=== PATIENT | male | born 1990 | race Caucasian/White ===

== ENCOUNTER 2017-09-01 17:33 | Emergency (ER) | payer OTHER ==
[2017-09-01 17:57] VITALS: BP 129/81; PULSE 80; RESP 16; TEMP 98.8; O2SAT 97
--- NOTE | 2017-09-01 18:26 | EDPHY ---
General Time Seen by Provider: 09/01/17 18:06 Narrative: CHIEF COMPLAINT: foreign body finger HISTORY OF PRESENT ILLNESS: Patient complains of splinter foreign body to right index finger. This occurred on August 24 while swinging a sledge hammer. He went to outside facility that day with partial removal of the splinter performed. He is that he was told with rest would "work it's way out." He is provided a prescription of Keflex. He has been taking this as prescribed. He says that he felt well for due to in the noticed piece of the splinter in place. He is not bothering him. It is mildly painful. No redness. No warmth. No fever. No difficulty bending or straightening the finger. No systemic illness. He is here asking for the rest of the splinter to be removed. No other associated complaints or modifying factors. Right-hand dominant. TIME OF INJURY: August 24 TETANUS STATUS: Up to date MEDICAL/SURGICAL/SOCIAL HISTORY: Uncomplicated medical history. Lives and works here locally. REVIEW OF SYSTEMS: Ten systems reviewed and are negative unless otherwise noted in the HPI EXAMINATION General Appearance: Alert, no distress Head: normocephalic, atraumatic Cardiovascular: Symmetric radial pulses 2+. Brisk cap refill in the right index finger. Neurological: A&O, 2 point sensation intact. Excellent and symmetric interossei strength. Skin: Warm and dry, no rash. Superficial eschar over the right index finger area of insertion of the splinter. There is no cellulitis. No crepitus. No warmth. No tenosynovitis. Extremities: Minimally tender right index finger over the dorsum of the middle phalanx. There is a palpable firmness in this area consistent with his history. There is full flexion extension at the PIP and PIP of the right index finger. DIFFERENTIAL DIAGNOSES: Including but not limited to superficial foreign body, foreign body, edema, tenosynovitis MDM: 6:25 p.m. Retained foreign body on the posterior aspect of the right index finger middle phalanx. This is palpable and visual by unofficial bedside ultrasound. He has no evidence of tenosynovitis. Full flexion extension without any redness, warmth, erythema or evidence of septic joint. I have administered a digital block. 7:25 p.m. Partial movable of foreign body of the right index finger. I was able to remove approximately half a cm or last of suspected wooden foreign body. I explored the remainder of the area with blunt dissection and cannot visualize or palpate any further foreign body. This was all done without complication and tolerated well. He was CMS intact pre and postprocedure with good flexion extension at both the PIP and the IP. I have sutured the wound closed with 4 sutures. I will refer him to hand surgeon for definitive care. This is a recommended mandatory follow-up. He has strict ED precautions. He is Keflex prophylaxis. Light duty for the next 3-5 days and then advance slowly. Suture removal here in 7-10 days. He is comfortable this plan and discharged home stable condition. PROCEDURE: Foreign Body Removal 4 simple ruptured sutures. Consent: Verbal Location: Right index finger, dorsal, middle phalanx Complexity: Complex Layer involvement: Single Anesthesia: Digital block Irrigation: Extensive Procedure description: Following good anesthesia and time-out, using sterile technique I extended the existing wound into a 1 cm incision over the palpable suspected foreign body. I used blunt dissection in the surrounding 0.5 cm. I was able to remove one small piece of wooden foreign body. I was unable to palpate or appreciate any other remaining foreign body. The area was copiously irrigated. I then closed the wound with Tolerated well without complication. Suture/Staple material: 4-0 Ethilon, 4 simple ruptured sutures Wound care: Routine as discussed Suture/Staple removal: 7-10 Days PROCEDURE: Digital Block Indication: Foreign body Consent: Verbal Location: Right index finger Anesthesia: Lidocaine 1% plain, 0.25% Marcaine plain, 5mL Description: Base of the finger was prepped. The above was infused without difficulty. Tolerated well. Good anesthesia. Complications: None SUPERVISION: This patient was independently evaluated without direct involvement of or examination by the attending physician. ED Precautions: Worsening pain. Erythema, edema, cyanosis, pallor, paresthesia or anesthesia. - History Smoking Status: Never smoked - Objective Vital Signs: Initial Vital Signs Temperature (C) 98.8 F 09/01/17 17:54 Heart Rate 80 09/01/17 17:54 Respiratory Rate 16 09/01/17 17:54 Blood Pressure 129/81 H 09/01/17 17:54 O2 Sat (%) 97 09/01/17 17:54 O2 Delivery Mode Room Air Allergies/Adverse Reactions: No Known Allergies Allergy (Unverified 09/01/17 17:54) Home Medications: Medication Instructions Recorded No Medications [NO HOME 1 ea [facility] 12/11/11 MEDICATIONS] Cephalexin [Keflex (*)] 500 mg PO QID #28 cap 09/01/17 Keflex 09/01/17 Departure - Departure Disposition: Home, Routine, Self-Care Clinical Impression: Foreign body of right index finger Condition: Good Instructions: Soft Tissue Foreign Body (ED) Additional Instructions: 1. Daily wound care as discussed with bacitracin and clean dressings frequently. Do not apply any other comb machine operator, alcohol or peroxide 2. No submerging under any water until sutures are removed in 7-10 days. This includes [facility] water, bathtub, swimming pools and hot tubs 3. Follow up with hand surgeon for definitive care 4. The sutures will need to be taken out in 7-10 days in this emergency department Referrals: Donald Myers MD [Medical Doctor] - As per Instructions Prescriptions: Cephalexin [Keflex (*)] 500 mg PO QID #28 cap
== END 2017-09-01 19:41 | disposition home or self-care (01) ==
PROC: 0JCJ0ZZ Extirpation of Matter from Right Hand Subcutaneous Tissue and Fascia, Open Approach (ICD-10-PCS; principal; 2017-09-01)
DX: S60.450A Superficial foreign body of right index finger, initial encounter (principal); W45.8XXA Other foreign body or object entering through skin, initial encounter; Y99.0 Civilian activity done for income or pay; Y93.89 Activity, other specified

== ENCOUNTER 2018-06-29 11:53 | Emergency (ER) | payer OTHER ==
--- NOTE | 2018-06-29 12:08 | EDPHY ---
H & P Time Seen by Provider: 06/29/18 12:07 HPI/ROS: Chief complaint. Cough HPI. Patient is 27-year-old male presents with 3 and half weeks of cough after upper respiratory infection. He was seen at urgent care and prescribed prednisone and some codeine cough syrup. His throat feels raw and he hurts behind the sternum when he coughs. No fever. 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 and is leaving tomorrow for winter training school in [place]. He has had sick contacts in the . He does not have a history of asthma but he does have a history of prolonged coughing following upper respiratory infections. No unusual leg pain or swelling. No chest discomfort if he is not coughing. No shortness of breath ROS 10 systems were reviewed and negative with the exception of the elements mentioned in the history of present illness Past Medical/Surgical History: Shoulder dislocation Social History: Single, nonsmoker, no alcohol Smoking Status: Never smoked Physical Exam: General Appearance: Alert pleasant well-developed male mild distress vital signs are stable Eyes: Pupils equal and round no pallor or injection. ENT, pharynx without injection. Mucous membranes are moist Respiratory: There are no retractions, lungs are clear to auscultation. Cardiovascular: Regular rate and rhythm. Gastrointestinal: Abdomen is soft and nontender, no masses, bowel sounds normal. Neurological: Awake and alert, sensory and motor exams grossly normal. Skin: Warm and dry, no rashes. Musculoskeletal: Neck is supple nontender. Extremities symmetrical, full range of motion. Psychiatric: Patient is oriented X 3, there is no agitation. Constitutional: Initial Vital Signs Temperature (C) 36.6 C 06/29/18 11:57 Heart Rate 98 06/29/18 11:57 Respiratory Rate 18 06/29/18 11:57 Blood Pressure 123/73 H 06/29/18 11:57 O2 Sat (%) 95 06/29/18 11:57 O2 Delivery Mode Room Air Allergies/Adverse Reactions: No Known Allergies Allergy (Verified 06/29/18 11:56) Home Medications: Medication Instructions Recorded Albuterol Hfa Anes Only [Proair 2 puffs IH QID PRN #1 mdi 06/29/18 Hfa Icu (*)] Azithromycin [Zithromax] 250 mg PO DAILY #6 tab 06/29/18 Benzonatate [Tessalon Pearles (RX)] 100 mg PO Q4-6PRN PRN #20 cap 06/29/18 predniSONE 06/29/18 Medical Decision Making - Diagnostics Imaging Results: Chest x-ray reviewed by me shows no pneumonia Procedures: Paolo hidalgo ED Course/Re-evaluation: Re-evaluation 1:05 p.m.. Patient is stable. He and I discussed imaging study results, treatment plan including criteria for return importance of follow-up further evaluation. He expresses understanding and agreement Differential Diagnosis: This is likely bronchitis and post viral infection. The patient however is leaving tomorrow for remote help fine when her training school for the . We will use inhaler, Tessalon Perles, antibiotics. - Data Points Medications Given: Discontinued Medications Albuterol/Ipratropium (Duoneb) 3 ml IH EDNOW ONE Stop: 06/29/18 12:32 Last Admin: 06/29/18 12:34 Dose: 3 ml Departure - Departure Disposition: Home, Routine, Self-Care Clinical Impression: Acute bronchitis Qualifiers: Bronchitis organism: unspecified organism Qualified Code(s): J20.9 - Acute bronchitis, unspecified Condition: Good Instructions: Acute Bronchitis (ED) Additional Instructions: Drink plenty of fluids and stay hydrated Albuterol inhaler using 2 puffs every 4-6 hours to help with breathing and cough. Tessalon Perles to help with cough Zithromax as antibiotic Return for worsening symptoms. Re-evaluation in 3-4 days if not improved Prescriptions: Albuterol Hfa Anes Only [Proair Hfa Icu (*)] 2 puffs IH QID PRN #1 mdi PRN Reason: Short Of Breath/Dyspnea Azithromycin [Zithromax] 250 mg PO DAILY #6 tab Benzonatate [Tessalon Pearles (RX)] 100 mg PO Q4-6PRN PRN #20 cap PRN Reason: Cough, Moderate
[2018-06-29] MEDS ORDERED: IPRATROPIUM/ALBUTEROL 3 ML DEYVIAL IH ONE (12:31)
[2018-06-29 13:15] VITALS: BP 153/98
== END 2018-06-29 13:18 | disposition home or self-care (01) ==
DX: J20.9 Acute bronchitis, unspecified (principal); Z79.52 Long term (current) use of systemic steroids